=== PATIENT | female | born 2000 | race Caucasian/White ===

== ENCOUNTER 2022-12-17 21:46 | Outpatient (REF) | payer BC, SELFPAY | END 2022-12-17 21:47 | disposition home or self-care (01) | LOC: NPINS 21:46 | PROVIDERS: PCP Emergency Medicine; Visit Provider Emergency Medicine | DX: Z00.00 Encounter for general adult medical examination without abnormal findings (principal); Z13.0 Encounter for screening for diseases of the blood and blood-forming organs and certain disorders involving the immune mechanism; Z01.84 Encounter for antibody response examination | CPT/HCPCS: 86480; 86735; 86762; 86765; 87341 ==

== ENCOUNTER 2023-01-13 13:01 | Outpatient (CLI) | payer BC, SELFPAY | END 2023-01-13 13:02 | disposition home or self-care (01) | LOC: NFLDREF 01-16 05:51 | PROVIDERS: PCP Emergency Medicine; Referring Provider Emergency Medicine; Visit Provider Emergency Medicine | DX: Z01.84 Encounter for antibody response examination (principal) | CPT/HCPCS: 86706 ==

== ENCOUNTER 2023-09-12 09:58 | Outpatient (CLI) | payer BC, SELFPAY | END 2023-09-12 09:59 | disposition home or self-care (01) | LOC: NFLDREF 09-17 12:15 | PROVIDERS: PCP Emergency Medicine; Referring Provider Emergency Medicine; Visit Provider Emergency Medicine | DX: Z78.9 Other specified health status (principal) | CPT/HCPCS: 86706 ==

== ENCOUNTER 2023-12-12 13:13 | Outpatient (CLI) | payer BC, SELFPAY | END 2023-12-12 13:14 | disposition home or self-care (01) | PROVIDERS: PCP Emergency Medicine; Visit Provider Family Medicine | DX: Z00.00 Encounter for general adult medical examination without abnormal findings (principal); E78.00 Pure hypercholesterolemia, unspecified; R03.0 Elevated blood-pressure reading, without diagnosis of hypertension; Z13.0 Encounter for screening for diseases of the blood and blood-forming organs and certain disorders involving the immune mechanism; Z11.7 Encounter for testing for latent tuberculosis infection; Z11.3 Encounter for screening for infections with a predominantly sexual mode of transmission | CPT/HCPCS: 80048; 80061; 84443; 86480; 86703; 87491; 87591 ==

== ENCOUNTER 2024-09-16 09:07 | Outpatient (CLI) | payer BC, SELFPAY | END 2024-09-16 09:08 | disposition home or self-care (01) | LOC: LKVREF 09:09 | PROVIDERS: PCP Family Medicine; Visit Provider Family Medicine | DX: Z11.7 Encounter for testing for latent tuberculosis infection (principal) | CPT/HCPCS: 86480 ==

== ENCOUNTER 2025-01-05 09:00 | Outpatient (CLI) | payer BC, SELFPAY | END 2025-01-05 09:01 | disposition home or self-care (01) | LOC: NFLDREF 01-09 07:36 | PROVIDERS: PCP Family Medicine; Referring Provider Family Medicine; Visit Provider Family Medicine | DX: Z11.1 Encounter for screening for respiratory tuberculosis (principal) | CPT/HCPCS: 86480 ==

== ENCOUNTER 2025-05-06 08:46 | Outpatient (CLI) | payer BC, SELFPAY ==
[2025-05-06 12:09] LABS: Chlamydia DNA Amplified* NOT DETECTED (No Detected); GC DNA Amplified* NOT DETECTED (No Detected)
== END 2025-05-06 08:47 | disposition home or self-care (01) ==
PROVIDERS: PCP Family Medicine; Visit Provider Obstetrics & Gynecology
DX: N91.2 Amenorrhea, unspecified (principal); Z11.3 Encounter for screening for infections with a predominantly sexual mode of transmission
CPT/HCPCS: 84146; 84443; 87491; 87591